=== PATIENT | female | born 1965 | race Caucasian/White ===

== ENCOUNTER 2018-07-22 13:47 | Emergency (ER) | payer BC ==
[~2018-07-22] VITALS: Ht 157.5 cm; Wt 127.3 kg
[2018-07-22] MEDS ORDERED: MORPHINE 4 MG/ML 1ML VIAL/SYRINGE (J2270) As Ordered ONE (15:38)
[2018-07-22] MEDS ORDERED: METHOCARBAMOL 500 MG TAB PO ONE (15:45)
[2018-07-22] MEDS ORDERED: MORPHINE 10 MG/ML 1ML VIAL (J2270) IM ONE (15:45)
[2018-07-22] MEDS ORDERED: NAPROXEN 250 MG TAB PO ONE (15:45)
[2018-07-22 16:10] VITALS: BP 130/67
[2018-07-22] MEDS ORDERED: METH1TAB40 PO (16:47)
[2018-07-22] MEDS ORDERED: NAPR-885 PO (16:47)
== END 2018-07-22 16:55 | disposition home or self-care (01) ==
LOC: M ED 13:47
DX: S39.012A Strain of muscle, fascia and tendon of lower back, initial encounter (principal); M62.830 Muscle spasm of back; W18.40XA Slipping, tripping and stumbling without falling, unspecified, initial encounter; Y92.9 Unspecified place or not applicable; Y93.9 Activity, unspecified; Y99.9 Unspecified external cause status
CPT/HCPCS: 96372; 99283; J2270